=== PATIENT | female | born 1970 | race African-American/Black ===

== ENCOUNTER 2022-01-13 12:29 | Emergency (ER) | payer MEDICARE, MEDICAID ==
[~2022-01-13] VITALS: Ht 167.6 cm; Wt 61.0 kg
[~2022-01-13 12:29] MED LIST: LITH150C PO; LURA80TA PO
[2022-01-13] MEDS ORDERED: SODIUM CHLORIDE 0.9% 1,000 ML IV ONE (13:15)
[2022-01-13] MEDS ORDERED: ONDANSETRON HCL 4MG/2ML INJ IV STA (13:15)
[2022-01-13 13:35] LABS: BASOPHILS % 0.5 % (0.0-2.0); EOSINOPHILS % 4.2 % (0.0-5.0); HEMOGLOBIN. 13.1 g/dL (12.0-16.0); LYMPHOCYTES % 43.5 % (20.0-50.0); MEAN CORPUSCULAR HEMOGLOBIN 29.7 pg (28.0-32.0); MEAN CORPUSCULAR VOLUME 88.3 fL (81.0-99.0); MEAN PLATELET VOLUME 10.1 fl (7.4-10.4); MONOCYTES % 6.1 % (2.0-8.0); NEUTROPHILS % 45.7 % (40.0-76.0); PLATELET 212 x1000/uL (130-400); RED BLOOD CELL COUNT 4.42 mill/uL (4.2-5.4); RED CELL DISTRIBUTION WIDTH 13.5 % (11.6-14.6)
[2022-01-13 13:49] LABS: CHLORIDE 112 mEq/L (98-107)
[2022-01-13 13:51] LABS: HCG SCREEN NEGATIVE
[2022-01-13 14:28] VITALS: BP 122/64
[2022-01-13] MEDS ORDERED: MORPHINE SULFATE 4 MG/ML CPJ (NOT FOR IM USE) IV ONE (14:30)
== END 2022-01-13 15:51 | disposition home or self-care (01) ==
LOC: ER 12:29
DX: R19.7 Diarrhea, unspecified (principal)
CPT/HCPCS: 36415; 80053; 83690; 84703; 85025; 96361; 96374; 96375; 99284; J2270; J2405; J7030